=== PATIENT | male | born 1970 | race Caucasian/White ===

== ENCOUNTER 2019-08-08 20:53 | Emergency (ER) | payer BC ==
[~2019-08-08] VITALS: Ht 180.3 cm; Wt 81.7 kg
--- NOTE | 2019-08-08 21:09 | NUR ---
C/O FEELING FAST HEARTBEAT WHILE SITTING DOWN HAVING COFFEE, ALSO C/O HEAVY FEELING ON LEFT SHOULDER, DENIES PAIN.
[2019-08-08] MEDS ORDERED: GUAI-348 PO (21:15)
--- NOTE | 2019-08-08 21:30 | NUR ---
MEDICAL STUDENT AT BEDSIDE. PT RESTING ON GURNEY, NO ACUTE DISTRESS OBSERVED.
--- NOTE | 2019-08-08 22:28 | NUR ---
ASSISTED PT TO RESTROOM, PT HAS STEADY GAIT, NO ACUTE DISTRESS OBSERVED AT THIS TIME.
[2019-08-08 22:36] LABS: MEAN CORPUSCULAR HEMOGLOBIN 30.6 pg (27.5-34.5); MEAN CORPUSCULAR HGB CONC 33.3 g/dL (33.2-36.2); MEAN PLATELET VOLUME 8.2 fL (7.4-10.4); PLATELET COUNT 209 x10^3/uL (130-400); RED BLOOD COUNT 5.21 x10^6/uL (4.38-5.82); RED CELL DISTRIBUTION WIDTH 13.2 % (9.4-14.8)
[2019-08-08 22:43] VITALS: BP 129/90
[2019-08-08 22:46] LABS: ALANINE AMINOTRANSFERASE 31 U/L (12-78); ALBUMIN 3.9 g/dL (3.4-5.0); ANION GAP 7 mmol/L (5-15); CALCIUM 8.4 mg/dL (8.5-10.1); CHLORIDE 106 mmol/L (98-107); CREATININE 0.94 mg/dL (0.7-1.3)
[2019-08-08 22:51] LABS: ALKALINE PHOSPHATASE 79 U/L (45-117); BILIRUBIN,TOTAL 0.3 mg/dL (0.2-1.0); T4 (THYROXINE) 7.4 mcg/dL (4.5-12.1); TOTAL PROTEIN 7.6 g/dL (6.4-8.2); TROPONIN I < 0.015 ng/mL (0.000-0.045)
[2019-08-08 22:53] LABS: MD YES
[2019-08-08 22:57] LABS: <PLATELET ESTIMATE> ADEQUATE; <PLT MORPHOLOGY> NORMAL PLT MORPH; <RBC MORPHOLOGY> NORMAL; EOS#(MANUAL) 0.15 x10^3/uL (0.0-0.4); EOS% (MANUAL) 2 % (1-7); LYMPHS% (MANUAL) 40 % (22-44); MONOS#(MANUAL) 0.75 x10^3/uL (0.3-2.7); MONOS% (MANUAL) 10 % (2-9); SEGS% (MANUAL) 48 % (42-75)
== END 2019-08-08 23:45 | disposition home or self-care (01) ==
LOC: ED 21:53
DX: R00.2 Palpitations (principal); R20.2 Paresthesia of skin
CPT/HCPCS: 36415; 71045; 80053; 83735; 84436; 84443; 84484; 85025; 93005; 99285

== ENCOUNTER 2021-02-23 20:28 | Emergency (ER) | payer BC ==
[~2021-02-23] VITALS: Ht 180.3 cm; Wt 83.0 kg
[~2021-02-23 20:28] MED LIST: GUAI-348 PO
[2021-02-23 21:09] LABS: BASOPHILS % (AUTO) 1 % (0-1); EOSINOPHILS % (AUTO) 2 % (1-7); LYMPHOCYTES % (AUTO) 42 % (22-44); MEAN CORPUSCULAR HEMOGLOBIN 31.3 pg (27.5-34.5); MEAN CORPUSCULAR HGB CONC 34.4 g/dL (33.2-36.2); MEAN PLATELET VOLUME 8.1 fL (7.4-10.4); MONOCYTES % (AUTO) 9 % (2-9); NEUTROPHILS % (AUTO) 47 % (42-75); PLATELET COUNT 216 x10^3/uL (130-400); RED BLOOD COUNT 4.97 x10^6/uL (4.38-5.82); RED CELL DISTRIBUTION WIDTH 12.9 % (9.4-14.8)
[2021-02-23 21:19] LABS: ALANINE AMINOTRANSFERASE 32 U/L (12-78); ALBUMIN 3.5 g/dL (3.4-5.0); ANION GAP 4 mmol/L (5-15); CALCIUM 8.4 mg/dL (8.5-10.1); CHLORIDE 107 mmol/L (98-107); CREATININE 1.03 mg/dL (0.7-1.3)
[2021-02-23 21:23] LABS: ALKALINE PHOSPHATASE 87 U/L (45-117); BILIRUBIN,TOTAL 0.2 mg/dL (0.2-1.0); TOTAL PROTEIN 7.4 g/dL (6.4-8.2); TROPONIN I < 0.015 ng/mL (0.000-0.045)
--- NOTE | 2021-02-23 22:28 | NUR ---
PT AMBULATED STEADILY TO ROOM FROM LOBBY WITH RN. PT DENIES CP/SOB. REPORTS HAVING ELEVATED BP AT TODAY WHILE BEING EVALUATED FOR SINUS PRESSURE. DENIES HX OF HTN. NO BROWN/CP/FLANK PAIN/HEMATURIA. BP 144/92 HR 55 SINUS. BP/SPO2/ECG MONITORING IN PLACE. ERP AT BEDSIDE FOR EVAL.
[2021-02-23 22:32] VITALS: BP 144/90
--- NOTE | 2021-02-23 22:49 | NUR ---
DC EDUCATION PROVIDED, PT DEMONSTRATES UNDERSTANDING. PT AMBULATED STEADILY TO DC WITH RN
== END 2021-02-23 23:08 | disposition home or self-care (01) ==
LOC: ED 21:00
DX: I10 Essential (primary) hypertension (principal); J01.00 Acute maxillary sinusitis, unspecified; R94.31 Abnormal electrocardiogram [ECG] [EKG]; F17.200 Nicotine dependence, unspecified, uncomplicated
CPT/HCPCS: 36415; 71045; 80053; 84484; 85025; 93005; 99285